=== PATIENT | male | born 1965 | race Caucasian/White ===

== ENCOUNTER → 2017-12-30 | Outpatient (CLI) | payer OTHER ==
--- NOTE | 2017-12-30 14:15 | Diagnostic Imaging Report ---
Exam: Lumbar spine MRI without IV contrast History: Low back pain radiates to the right side of the back. Comparison studies: None Technique: Sagittal and axial T2 , sagittal T1 and IR, axial spin density oblique and coronal T2. Intravenous contrast: None Findings: Number of lumbar vertebral bodies: 5. Alignment: Normal lordosis. Approximately 3 mm Grade 1 Retrolisthesis of L3 on L4 and 2 mm Grade 1 anterolisthesis of L4 and L5. Mild thoracolumbar curvature convex to the left centered at T11-T12. Soft tissues: No T2 hyperintense inflammatory changes. Paraspinal muscles: No signal abnormalities. Well-preserved. No atrophic changes Lower thoracic cord: Mildly prominent central spinal canal. No masses within the included imaged field of view. The tip of the conus is at L1-L2. Cauda equina: Focal chronic compression of the carotid carotid nerve roots at L3-L4 and crowding of the cauda equina nerve roots at L4-L5 due to degenerative canal stenosis as described below with associated mild nerve root redundancy. No mass or evidence of arachnoiditis. Vertebrae: No compression fractures, infection or neoplasm. Degenerative changes: Mildly degenerated disks from T10 to S1. T10-T11: Mild edema along the inferior T11 endplate. Small disc bulge which does not result in canal or foraminal stenosis. T11-T12: Minimal edema along the anterior bridging osteophyte. Small disc bulge indents thecal sac without significant canal or foraminal stenosis. T12-L1: Small disc bulge indents the thecal sac without significant foraminal stenosis. L1-L2: Symmetric disc bulge results in mild canal stenosis. Patent foramina. L2-L3: Symmetric disc bulge, thickened ligamentum flavum and mild facet arthrosis with mild canal stenosis. No significant foraminal stenosis. L3-L4: Minimal retrolisthesis of L3 on L4 with associated uncovered disc/disc bulge, 8mm TV x 3 mm AP central disc protrusion, thickened ligamentum flavum and moderate bilateral facet arthrosis with severe canal stenosis and mild bilateral foraminal stenosis per L4-L5: Minimal anterolisthesis of L4 and L5 with associated uncovered disc/disc bulge, thickened ligamenta flava and severe bilateral facet arthrosis with moderate canal stenosis, moderate bilateral subarticular stenosis and moderate bilateral foraminal stenosis. L5-S1: Disc bulge and moderate right and mild left facet arthrosis without significant canal or foraminal stenosis. Additional findings: Few scattered mildly prominent retroperitoneal lymph nodes are nonspecific and may be reactive. IMPRESSION: 1. Severe degenerative canal stenosis and mild bilateral foraminal stenosis at L3-L4 where there is a small central disc protrusion and minimal Grade 1 L3 retrolisthesis. 2. Moderate degenerative canal stenosis, subarticular stenosis and bilateral foraminal stenosis at L4-L5 with there is Grade 1 L4 anterolisthesis. 3. 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 4. Incidental mildly prominent central spinal canal. Unclear if this is an incidental anatomical variant or possibly related to proximal cord pathology. Recommend dedicated cervical and thoracic spine MRI to further evaluate the cord. Signed by: Dr. Adrian Khan M.D. on 12/30/2017 2:12 PM
== END ==
LOC: MRI 12:04
PROVIDERS: ATTEND Family Medicine
DX: M54.5 Low back pain (principal)
CPT/HCPCS: 72148